=== PATIENT | female | born 1945 | race Caucasian/White ===

== ENCOUNTER 2018-12-18 16:43 | Emergency (ER) | payer OTHER ==
[~2018-12-18] VITALS: Ht 157.5 cm; Wt 58.3 kg
[~2018-12-18 16:43] MED LIST: ADULT LOW DOSE81 MG PO; ALTACE10 MG PO; ATIVAN; ATIVAN0.5 MG PO; ATORVASTATIN CA40 MG PO; CALTRATE 600 +1 EAC1 PO; ESCITALOPRAM OX10 MG PO; HYDROCHLOROTHIA25 M2 PO; METFORMIN HCL500 MG; NORCO 5-325 TA1 EACH PO; PLAVIX 75 MG TA75 M1 PO; PROZAC20 M1 PO; RAMIPRIL5 MG; TYLENOL P.M. E1 EAC3; ZOLOFT
[2018-12-18 16:57] VITALS: BP 187/82
[2018-12-18] MEDS ORDERED: TRAMADOL 50 MG50 MG PO (17:03)
[2018-12-18 17:13] LABS: URINE BILIRUBIN NEGATIVE (Negative); URINE BLOOD NEGATIVE (Negative); URINE CLARITY CLEAR; URINE COLOR YELLOW; URINE GLUCOSE-RANDOM NEGATIVE (Negative); URINE KETONES TRACE (Negative); URINE NITRITE-REFLEX NEGATIVE (Negative); URINE PROTEIN NEGATIVE (Negative); URINE SPECIFIC GRAVITY >= 1.030 (1.005-1.030); URINE UROBILINOGEN 0.2 E.U./dl (0.2-1.0)
[2018-12-18 17:15] LABS: URINE LEUKOCYTES-REFLEX 2+ (Negative)
[2018-12-18 17:21] LABS: HYALINE CASTS 4-10 Moderate /LPF (None Seen); SQUAMOUS >10 Many /LPF (0-3)
[2018-12-18 17:22] LABS: BACTERIA-REFLEX 1-9 Few /HPF (None Seen); URINE WBC-REFLEX 6-15 Few /HPF (0-5)
[2018-12-18 17:23] LABS: ABSOLUTE EOSINOPHILS 0.1 thou/uL (0.0-0.7); ABSOLUTE LYMPHOCYTES 2.3 thou/uL (0.8-5.3); ABSOLUTE MONOCYTES 0.6 thou/uL (0.0-1.2); BASOPHILS 0.5 %; EOSINOPHILS 0.6 %; HEMATOCRIT 36.9 % (37.0-47.0); HEMOGLOBIN 12.8 gm/dL (12.0-15.0); LYMPHOCYTES 23.3 %; MCH 30.5 pg (26.0-34.0); MCHC 34.8 g/dL (28.0-37.0); MCV 87.9 fL (80.0-100.0); MONOCYTES 5.9 %; MPV 9.5 fl. (7.2-11.1); NUCLEATED RBCS 0 /100WBC; PLATELET COUNT* 299 thou/uL (150-400); POLYS 69.7 %; RDW-CV 13.9 % (10.5-14.5)
[2018-12-18 17:24] LABS: CRYSTALS None Seen /LPF (None Seen); MUCUS None Seen strn/LPF (None Seen); URINE RBC None Seen /HPF (0-2)
[2018-12-18 17:32] LABS: CALCIUM 9.7 mg/dL (8.5-10.1); CREATININE 1.4 mg/dL (0.6-1.3); POTASSIUM 3.5 mmol/L (3.5-5.1)
[2018-12-18 17:42] LABS: ALBUMIN 3.7 g/dL (3.4-5.0); TOTAL BILIRUBIN 0.6 mg/dL (<0.1-1.0); TOTAL PROTEIN 7.2 g/dL (6.4-8.2)
[2018-12-18] MEDS ORDERED: KEFLEX500 M1 PO ×5 (17:45→17:50)
[2018-12-18 18:24] VITALS: BP 186/79
--- NOTE | 2018-12-20 14:13 | EKG ---
[place] [address] ELECTROCARDIOGRAM REPORT Name: SUSANNE VARGAS Room: [facility]#: [id number] Admission: 12/18/18 Attend Phys: Discharge: 12/18/18 Date of : 41 Report #: [id number] THIS REPORT FOR: //name// [facility] ED Test Date: 2018-12-18 Test Time: 17:31:44 Pat Name: SUSANNE VARGAS Department: Room: [facility] Gender: F Sanitation Laborer: : 1945 Requested By: Laureen Valencia Order Number: [id number] MD: Misael Graves Measurements Intervals [place] Rate: 88 P: 42 [place]: 156 QRS: -21 QRSD: 92 T: 46 QT: 398 QTc: 482 Interpretive Statements Sinus rhythm Borderline left axis deviation Abnormal R-wave progression, early transition Baseline wander in lead(s) V3,V4 Compared to ECG 04/30/2018 22:34:16 ST (T wave) deviation no longer present Electronically Signed On 12-20-2018 14:13:12 CDT by Misael Graves [email or web address] <ELECTRONICALLY SIGNED> By: Chani Graves MD, FAC 12/20/18 1413 1731 173 Chani Graves MD, [facility] /EPI
== END 2018-12-18 18:26 | disposition home or self-care (01) ==
LOC: M.ERS 16:43 → M.TBA-ER 17:34 → M.ERS 18:26
PROVIDERS: Physician Assistant
DX: N39.0 Urinary tract infection, site not specified (principal); F32.9 Major depressive disorder, single episode, unspecified; E11.9 Type 2 diabetes mellitus without complications; I10 Essential (primary) hypertension; F41.9 Anxiety disorder, unspecified; Z86.73 Personal history of transient ischemic attack (TIA), and cerebral infarction without residual deficits; Z88.5 Allergy status to narcotic agent; Z87.891 Personal history of nicotine dependence

== ENCOUNTER 2021-03-18 11:09 | Emergency (ER) | payer OTHER ==
[~2021-03-18] VITALS: Ht 167.6 cm; Wt 68.0 kg
[~2021-03-18 11:09] MED LIST changes: +KEFLEX500 M1 PO; +TRAMADOL 50 MG50 MG PO
[2021-03-18] MEDS ORDERED: LORAZEPAM 1 MG T1 MG PO (11:25)
[2021-03-18] MEDS ORDERED: RAMIPRIL5 MG PO (11:25)
[2021-03-18] MEDS ORDERED: OXYBUTYNIN 5 MG5 M1 PO (11:25)
[2021-03-18 12:02] LABS: ABSOLUTE BASOPHILS 0.1 thou/uL (0.0-0.2); ABSOLUTE EOSINOPHILS 0.5 thou/uL (0.0-0.7); BASOPHILS 0.7 %; EOSINOPHILS 4.6 %; MPV 8.5 fl. (7.2-11.1); NUCLEATED RBCS 0 /100WBC; RBC 4.26 mil/uL (4.20-5.00)
[2021-03-18 12:04] LABS: ABSOLUTE LYMPHOCYTES 1.4 thou/uL (0.8-5.3); ABSOLUTE MONOCYTES 0.6 thou/uL (0.0-1.2); ABSOLUTE NEUTROPHILS 8.6 thou/uL (1.6-8.1); HEMATOCRIT 38.2 % (37.0-47.0); HEMOGLOBIN 12.9 gm/dL (12.0-15.0); LYMPHOCYTES 12.8 %; MCH 30.3 pg (26.0-34.0); MCHC 33.8 g/dL (28.0-37.0); MCV 89.8 fL (80.0-100.0); MONOCYTES 5.7 %; PLATELET COUNT* 222 thou/uL (150-400); POLYS 76.2 %; RDW-CV 13.5 % (10.5-14.5); WBC 11.3 thou/uL (4.0-11.0)
[2021-03-18 12:15] LABS: CALCIUM 9.7 mg/dL (8.5-10.1); CREATININE 1.2 mg/dL (0.6-1.3); POTASSIUM 3.7 mmol/L (3.5-5.1)
[2021-03-18 12:16] LABS: ALBUMIN 3.5 g/dL (3.4-5.0); TOTAL BILIRUBIN 0.8 mg/dL (<0.1-1.0); TOTAL PROTEIN 6.7 g/dL (6.4-8.2)
[2021-03-18 12:20] LABS: INFLUENZA A ANTIGEN Negative (Negative); INFLUENZA B ANTIGEN Negative (Negative)
[2021-03-18 14:38] LABS: URINE BLOOD NEGATIVE (Negative); URINE CLARITY CLEAR; URINE COLOR YELLOW; URINE GLUCOSE-RANDOM NEGATIVE (Negative); URINE KETONES 2+ (Negative); URINE LEUKOCYTES-REFLEX TRACE (Negative); URINE NITRITE-REFLEX NEGATIVE (Negative); URINE PROTEIN NEGATIVE (Negative); URINE SPECIFIC GRAVITY 1.025 (1.005-1.030); URINE UROBILINOGEN 0.2 E.U./dl (0.2-1.0)
[2021-03-18 14:58] LABS: ICTOTEST (BILI CONFIRMATORY) Negative (Negative); URINE BILIRUBIN 1+ (Negative)
[2021-03-18 15:05] LABS: CASTS None Seen /LPF (None Seen); MUCUS None Seen strn/LPF (None Seen); SQUAMOUS >10 Many /LPF (0-3)
[2021-03-18 15:06] LABS: BACTERIA-REFLEX 1-9 Few /HPF (None Seen); CRYSTALS None Seen /LPF (None Seen); URINE RBC 0-2 Rare /HPF (0-2); URINE WBC-REFLEX 0-5 Rare /HPF (0-5)
[2021-03-18 15:28] VITALS: BP 170/89
--- NOTE | 2021-03-19 10:04 | EKG ---
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[facility] : 1945 Requested By: Lucy Chang Order Number: [id number] MD: Tyrone Hernadez Measurements Intervals [place] Rate: 94 P: 45 [place]: 156 QRS: -35 QRSD: 95 T: 75 QT: 368 QTc: 461 Interpretive Statements Sinus rhythm nonspecific t wave changes Abnormal R-wave progression, late transition Left ventricular hypertrophy Compared to ECG 12/18/2018 17:31:44 Left ventricular hypertrophy now present Electronically Signed On 03-19-2021 10:04:09 MANAGEMENT ANALYST by Tyrone Hernadez [email or web address] <ELECTRONICALLY SIGNED> By: Tyrone Hernadez MD, [facility] 03/19/21 1004 1217 1217 Tyrone Hernadez MD, [facility] /EPI
== END 2021-03-18 15:29 | disposition home or self-care (01) ==
LOC: M.ERS 11:09
PROVIDERS: Nurse Practitioner Family
DX: E86.0 Dehydration (principal); Z20.822 Contact with and (suspected) exposure to COVID-19; R53.1 Weakness; E11.9 Type 2 diabetes mellitus without complications; I10 Essential (primary) hypertension; F41.9 Anxiety disorder, unspecified; F32.9 Major depressive disorder, single episode, unspecified; Z79.899 Other long term (current) drug therapy; Z87.891 Personal history of nicotine dependence; Z88.5 Allergy status to narcotic agent